=== PATIENT | female | born 1965 | race American Indian/Alaskan Native ===

== ENCOUNTER 2016-10-28 09:03 | Emergency (ER) | payer OTHER ==
[2016-10-28 09:24] VITALS: BP 147/96; PULSE 85; RESP 18; TEMP 98.4; O2SAT 99
--- NOTE | 2016-10-28 10:41 | ED PDOC ---
HPI: CCC, URI, Sore Throat Time Seen by Provider: 10/28/16 09:15 Chief Complaint (Nursing): Cough, Cold, Congestion Chief Complaint (Provider): Cough, Cold, Congestion History Per: Patient History/Exam Limitations: no limitations Onset/Duration Of Symptoms: Days Current Symptoms Are (Timing): Still Present Location Of Pain: None Sick Contacts (Context): Individual(s) At Work Associated Symptoms: Cough. denies: Fever, Sore Throat Ear Symptoms: Bilateral: None Severity: Mild Additional Complaint(s): Patient is a 51 year old female who presents to ED for cough, congestion and resulting chest pain from cough that began yesterday. 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 Patient notes taking Dayquil but discontinued after reading the warning label about having DM. No abd pain, nausea, vomit, numbness, tingles. Past Medical History Reviewed: Historical Data, Nursing Documentation, Vital Signs Vital Signs: Last Vital Signs Temp 98.4 F 10/28/16 09:22 Pulse 85 10/28/16 09:22 Resp 18 10/28/16 09:22 BP 147/96 H 10/28/16 09:22 Pulse Ox 99 10/28/16 11:13 - Medical History PMH: Diabetes, HTN - Surgical History Surgical History: No Surg Hx - Family History Family History: States: Unknown Family Hx - Living Arrangements Living Arrangements: With Family - Social History Alcohol: None Drugs: Denies - Home Medications Home Medications: Ambulatory Orders Medication Instructions Recorded Azithromycin [Zithromax Z-Freedom] 250 mg PO DAILY #5 tab 02/26/15 Guaifenesin [Mucinex] 1,200 mg PO BID #14 ter 02/26/15 amLODIPine [Norvasc] 5 mg PO DAILY 02/26/15 Fluticasone Nasal [Flonase] 1 actuation NS BID #1 bottle 05/07/15 Polymyxin/Trimethoprim Sulfate 1 drop OS Q6 #1 bottle 05/07/15 [Polytrim Ophth Soln] Amoxicillin/Clavulanate [Augmentin 1 tab PO BID #20 tab 09/23/15 875 MG-125 MG] Cetirizine HCl [Zyrtec] 10 mg PO DAILY #10 capsule 09/23/15 Fluticasone Propionate [Flonase] 1 actuation NS DAILY #1 bottle 09/23/15 Benzonatate [Tessalon Perles] 100 mg PO BID PRN 5 Days 10/28/16 Ibuprofen [Motrin] 600 mg PO TID 7 Days 10/28/16 - Allergies Allergies/Adverse Reactions: Allergies Allergy/AdvReac Type Severity Reaction Status Date / Time No Known Allergies Allergy Verified 02/26/15 16:11 Review of Systems Constitutional: Negative for: Fever, Chills, Weakness Eyes: Negative for: Vision Change ENT: Negative for: Ear Pain, Ear Discharge, Nose Congestion, Throat Pain Cardiovascular: Positive for: Chest Pain. Negative for: Palpitations Respiratory: Positive for: Cough. Negative for: Shortness of Breath Gastrointestinal: Negative for: Nausea, Vomiting, Abdominal Pain Musculoskeletal: Negative for: Neck Pain, Shoulder Pain, Arm Pain Skin: Negative for: Rash Neurological: Negative for: Weakness Physical Exam - Reviewed Nursing Documentation Reviewed: Yes Vital Signs Reviewed: Yes - Physical Exam Appears: Positive for: Non-toxic, No Acute Distress Head Exam: Positive for: ATRAUMATIC Skin: Positive for: Normal Color, Warm, DRY Eye Exam: Positive for: Normal appearance ENT: Positive for: Nasal Congestion. Negative for: Pharyngeal Erythema, Tonsillar Exudate Neck: Positive for: Normal, Painless ROM Cardiovascular/Chest: Positive for: Regular Rate, Rhythm. Negative for: Murmur Respiratory: Positive for: Normal Breath Sounds (active cough). Negative for: Wheezing, Respiratory Distress Back: Positive for: Normal Inspection. Negative for: L CVA Tenderness, R CVA Tenderness Extremity: Positive for: Normal ROM. Negative for: Tenderness, Pedal Edema Neurologic/Psych: Positive for: Alert, Oriented - ECG O2 Sat by Pulse Oximetry: 99 (RA) Pulse Ox Interpretation: Normal - Progress ED Course And Treament: 1039: Stable. AAOx3. Pain free. Tolerated po. Refused EKG and wants a work note and dc. Medical Decision Making Medical Decision Making: Time: 954 Initial impression: Viral illness Initial plan: -- EKG -- Motrin PO and Tessalon Perles Time: 1015 Patient is refusing EKG at this time and would like to be discharged with a note excuse for work. Patient instructed to take Motrin as needed for discomfort and follow up with PMD Scribe Attestation: Documented by Britt Ovalle acting as a scribe for Paulo Hartman MD. Scribe Attestation: All medical record entries made by the Scribe were at my direction and personally dictated by me. I have reviewed the chart and agree that the record accurately reflects my personal performance of the history, physical exam, medical decision making, and the department course for this patient. I have also personally directed, reviewed, and agree with the discharge instructions and disposition. Disposition - Clinical Impression Clinical Impression: URI (upper respiratory infection) - Patient ED Disposition Is Patient to be Admitted: No Counseled Patient/Family Regarding: Diagnosis, Need For Followup, Rx Given - Disposition Referrals: [facility] [Outside] - 10/30/16 Disposition: Routine/Home Disposition Time: 10:40 Condition: STABLE Additional Instructions: Return if not better in 3 days. Prescriptions: Benzonatate [Tessalon Perles] 100 mg PO BID PRN 5 Days PRN Reason: Cough Ibuprofen [Motrin] 600 mg PO TID 7 Days Instructions: Upper Respiratory Infection (ED) Forms: [employer] (Spanish), [facility] ED School/Work Excuse
== END 2016-10-28 11:04 | disposition home or self-care (01) ==
LOC: H.ER 09:03
DX: J06.9 Acute upper respiratory infection, unspecified (principal); E11.9 Type 2 diabetes mellitus without complications; I10 Essential (primary) hypertension

== ENCOUNTER 2017-03-23 07:21 | Emergency (ER) | payer OTHER ==
[2017-03-23 07:49] VITALS: BP 172/89; PULSE 85; RESP 17; TEMP 98.1; O2SAT 98
[2017-03-23] MEDS ORDERED: Promethazine/Cod 6.25mg-10mg/5ml Syr UD PO STA (08:08)
[2017-03-23] MEDS ORDERED: Promethazine/Cod 6.25mg-10mg/5ml Syr UD ONE (08:21)
--- NOTE | 2017-03-23 08:26 | ED PDOC ---
HPI: CCC, URI, Sore Throat Time Seen by Provider: 03/23/17 07:37 Chief Complaint (Nursing): Cough, Cold, Congestion Chief Complaint (Provider): Cough History Per: Patient History/Exam Limitations: no limitations Onset/Duration Of Symptoms: Days (2) Additional Complaint(s): Patient is a 51 y/o female with a past medical history of hypertension and diabetes presenting to the emergency department for a frequent, dry cough since last night with associated throat irritation. Denies taking medication to relieve symptoms. Also denies fever, chest pain, shortness of breath, or other complaints. PCP: none provided. Past Medical History Reviewed: Historical Data, Nursing Documentation, Vital Signs Vital Signs: Last Vital Signs Temp 98.1 F 03/23/17 07:42 Pulse 85 03/23/17 07:42 Resp 17 03/23/17 07:42 BP 172/89 H 03/23/17 07:42 Pulse Ox 98 03/23/17 09:45 - Medical History PMH: Diabetes, HTN - Family History Family History: States: Unknown Family Hx - Social History Current smoker - smoking cessation education provided: Yes Ex-Smoker (has not smoked in the last 12 months): No Alcohol: Social Drugs: Denies - Home Medications Home Medications: Ambulatory Orders Medication Instructions Recorded Azithromycin [Zithromax Z-Freedom] 250 mg PO DAILY #5 tab 02/26/15 Guaifenesin [Mucinex] 1,200 mg PO BID #14 ter 02/26/15 amLODIPine [Norvasc] 5 mg PO DAILY 02/26/15 Fluticasone Nasal [Flonase] 1 actuation NS BID #1 bottle 05/07/15 Polymyxin/Trimethoprim Sulfate 1 drop OS Q6 #1 bottle 05/07/15 [Polytrim Ophth Soln] Amoxicillin/Clavulanate [Augmentin 1 tab PO BID #20 tab 09/23/15 875 MG-125 MG] Cetirizine HCl [Zyrtec] 10 mg PO DAILY #10 capsule 09/23/15 Fluticasone Propionate [Flonase] 1 actuation NS DAILY #1 bottle 09/23/15 Benzonatate [Tessalon Perles] 100 mg PO BID PRN 5 Days sgl 03/23/17 Ibuprofen [Motrin] 600 mg PO TID 7 Days tab 03/23/17 - Allergies Allergies/Adverse Reactions: Allergies Allergy/AdvReac Type Severity Reaction Status Date / Time No Known Allergies Allergy Verified 02/26/15 16:11 Review of Systems ROS Statement: Except As Marked, All Systems Reviewed And Found Negative Constitutional: Negative for: Fever Cardiovascular: Negative for: Chest Pain Respiratory: Positive for: Cough (dry), Other (throat irritation). Negative for : Shortness of Breath, Sputum Physical Exam - Reviewed Nursing Documentation Reviewed: Yes Vital Signs Reviewed: Yes - Physical Exam Appears: Positive for: Well, Non-toxic, No Acute Distress Head Exam: Positive for: ATRAUMATIC, NORMAL INSPECTION, NORMOCEPHALIC Skin: Positive for: Normal Color, Warm, Dry Eye Exam: Positive for: Normal appearance, EOMI, PERRL ENT: Positive for: Normal ENT Inspection Neck: Positive for: Normal Cardiovascular/Chest: Positive for: Regular Rate, Rhythm. Negative for: Murmur Respiratory: Positive for: Normal Breath Sounds. Negative for: Accessory Muscle Use, Respiratory Distress Gastrointestinal/Abdominal: Positive for: Normal Exam, Soft. Negative for: Tenderness Back: Positive for: Normal Inspection Extremity: Positive for: Normal ROM. Negative for: Pedal Edema Neurologic/Psych: Positive for: Alert, Oriented (x3) - ECG O2 Sat by Pulse Oximetry: 98 (RA) Pulse Ox Interpretation: Normal Medical Decision Making Medical Decision Making: Time: 08:08 Initial Impression: Cough Differential diagnoses include but not limited to upper respiratory infection, bronchitis, and influenza. Initial plan: Promethazine/Codeine 5 mL PO Influenza test Blood sugar evaluation Reevaluation Scribe Attestation: Documented by Jenni Lewis, acting as a scribe for Amber Chicas MD. Provider Scribe Attestation: All medical record entries made by the Scribe were at my direction and personally dictated by me. I have reviewed the chart and agree that the record accurately reflects my personal performance of the history, physical exam, medical decision making, and the department course for this patient. I have also personally directed, reviewed, and agree with the discharge instructions and disposition. Disposition - Clinical Impression Clinical Impression: Cough, URI (upper respiratory infection) - Patient ED Disposition Is Patient to be Admitted: No Counseled Patient/Family Regarding: Studies Performed, Diagnosis, Need For Followup - Disposition Referrals: [facility] [Outside] Disposition: Routine/Home Disposition Time: 10:30 Condition: GOOD Additional Instructions: Follow up with your PCP in 2-3 days. Prescriptions: Benzonatate [Tessalon Perles] 100 mg PO BID PRN 5 Days sgl PRN Reason: Cough Ibuprofen [Motrin] 600 mg PO TID 7 Days tab Instructions: Upper Respiratory Infection (ED) Forms: [facility] ED School/Work Excuse
== END 2017-03-23 10:58 | disposition home or self-care (01) ==
LOC: H.ER 07:21
DX: J06.9 Acute upper respiratory infection, unspecified (principal); E11.9 Type 2 diabetes mellitus without complications; I10 Essential (primary) hypertension

== ENCOUNTER 2017-07-17 12:57 | Emergency (ER) | payer OTHER ==
[2017-07-17 13:04] VITALS: RESP 16
[2017-07-17] MEDS ORDERED: Albuterol-Ipratrop 3 mg / 0.5 (3 ml) UD INH STA ×3 (14:06→14:07)
--- NOTE | 2017-07-17 14:37 | RAD ---
HISTORY: cough, dyspnea COMPARISON: Chest radiograph dated 03/06/2015. TECHNIQUE: Chest PA and lateral FINDINGS: LUNGS: No active pulmonary disease. PLEURA: No significant pleural effusion identified. No pneumothorax apparent. CARDIOVASCULAR: Normal. OSSEOUS STRUCTURES: Unchanged. VISUALIZED UPPER ABDOMEN: Normal. OTHER FINDINGS: None. IMPRESSION: No active disease.
--- NOTE | 2017-07-17 15:00 | ED PDOC ---
HPI: General Adult Time Seen by Provider: 07/17/17 13:56 Chief Complaint (Nursing): Flu-like Symptoms Chief Complaint (Provider): Cough History Per: Patient History/Exam Limitations: no limitations Onset/Duration Of Symptoms: Days (7 days ago) Current Symptoms Are (Timing): Still Present Additional Complaint(s): 52 yo female with a history of diabetes and hypertension, presents to the ED complaining of cough, onset of 1 week ago. She denies any fever, chills, abdominal pain, back pain but reports of cough and shortness of breath. Of note , she is an occasional smoker and has not received a flu shot. pmd: Dr. Hamilton ([place]) Past Medical History Reviewed: Historical Data, Nursing Documentation, Vital Signs Vital Signs: Last Vital Signs Temp 98.4 F 07/17/17 13:00 Pulse 98 H 07/17/17 13:00 Resp 16 07/17/17 13:00 BP 154/90 H 07/17/17 13:00 Pulse Ox 100 07/17/17 15:24 - Medical History PMH: Diabetes, HTN - Surgical History Surgical History: No Surg Hx - Family History Family History: States: Unknown Family Hx - Social History Current smoker - smoking cessation education provided: Yes (occasional) Alcohol: None Drugs: Denies - Home Medications Home Medications: Ambulatory Orders Medication Instructions Recorded Azithromycin [Zithromax Z-Freedom] 250 mg PO DAILY #5 tab 02/26/15 Guaifenesin [Mucinex] 1,200 mg PO BID #14 ter 02/26/15 amLODIPine [Norvasc] 5 mg PO DAILY 02/26/15 Fluticasone Nasal [Flonase] 1 actuation NS BID #1 bottle 05/07/15 Polymyxin/Trimethoprim Sulfate 1 drop OS Q6 #1 bottle 05/07/15 [Polytrim Ophth Soln] Amoxicillin/Clavulanate [Augmentin 1 tab PO BID #20 tab 09/23/15 875 MG-125 MG] Cetirizine HCl [Zyrtec] 10 mg PO DAILY #10 capsule 09/23/15 Fluticasone Propionate [Flonase] 1 actuation NS DAILY #1 bottle 09/23/15 Benzonatate [Tessalon Perles] 100 mg PO BID PRN 5 Days sgl 03/23/17 Ibuprofen [Motrin] 600 mg PO TID 7 Days tab 03/23/17 - Allergies Allergies/Adverse Reactions: Allergies Allergy/AdvReac Type Severity Reaction Status Date / Time No Known Allergies Allergy Verified 02/26/15 16:11 Review of Systems ROS Statement: Except As Marked, All Systems Reviewed And Found Negative Constitutional: Negative for: Fever, Chills Respiratory: Positive for: Cough, Shortness of Breath Gastrointestinal: Negative for: Abdominal Pain Musculoskeletal: Negative for: Back Pain Physical Exam - Reviewed Nursing Documentation Reviewed: Yes Vital Signs Reviewed: Yes - Physical Exam Appears: Positive for: Well, Non-toxic, No Acute Distress Head Exam: Positive for: ATRAUMATIC, NORMAL INSPECTION, NORMOCEPHALIC Skin: Positive for: Normal Color, Warm, DRY Eye Exam: Positive for: EOMI, Normal appearance, PERRL ENT: Positive for: Normal ENT Inspection Neck: Positive for: Normal, Painless ROM Cardiovascular/Chest: Positive for: Regular Rate, Rhythm. Negative for: Murmur Respiratory: Positive for: Wheezing (labored, scattered wheezing) Gastrointestinal/Abdominal: Positive for: Normal Exam, Soft. Negative for: Tenderness Back: Positive for: Normal Inspection Extremity: Positive for: Normal ROM. Negative for: Pedal Edema, Deformity Neurologic/Psych: Positive for: Alert, Oriented. Negative for: Motor/Sensory Deficits - ECG O2 Sat by Pulse Oximetry: 100 (RA) Pulse Ox Interpretation: Normal Medical Decision Making Medical Decision Making: Time: --14:06 Impression: --asthma vs. COPD vs. bronchial spasms Plan: --Albuterol 3ml INH x3 --Peak flow pre/post x3 Reassess --15:00 Patient to be signed out to Dr. Berger pending ED workup and final disposition. Scribe Attestation: Documented by Leo Jones acting as a scribe for Gisselle Negrete MD. Provider Attestation: All medical record entries made by the Scribe were at my direction and personally dictated by me. I have reviewed the chart and agree that the record accurately reflects my personal performance of the history, physical exam, medical decision making, and the department course for this patient. I have also personally directed, reviewed, and agree with the discharge instructions and disposition Disposition - Clinical Impression Clinical Impression: Asthma - Patient ED Disposition Is Patient to be Admitted: Transfer of Care Discussed With : Jessi Berger Doctor Will See Patient In The: ED - Disposition Disposition: Transfer of Care Disposition Time: 15:00 Condition: FAIR Forms: [employer] (Eritrean) Patient Signed Over To: Jessi Berger
--- NOTE | 2017-07-17 15:24 | ED PDOC ---
- ECG O2 Sat by Pulse Oximetry: 100 (RA) Pulse Ox Interpretation: Normal - Radiology X-Ray: Interpreted by Me X-Ray Interpretation: No Acute Disease - Progress Re-evaluation Time: 17:30 Condition: Improved Medical Decision Making Medical Decision Making: Time: --15:00 Reassess --Patient signed out to the provider by Dr. Negrete pending ED workup an final disposition. --14:36 FINDINGS: Chest X-ray LUNGS: No active pulmonary disease. PLEURA: No significant pleural effusion identified. No pneumothorax apparent. CARDIOVASCULAR: Normal. OSSEOUS STRUCTURES: Unchanged. VISUALIZED UPPER ABDOMEN: Normal. OTHER FINDINGS: None. IMPRESSION: No active disease. Scribe Attestation: Documented by Leo Jones acting as a scribe for Jessi Berger MD. Provider Attestation: All medical record entries made by the Scribe were at my direction and personally dictated by me. I have reviewed the chart and agree that the record accurately reflects my personal performance of the history, physical exam, medical decision making, and the department course for this patient. I have also personally directed, reviewed, and agree with the discharge instructions and disposition Disposition Counseled Patient/Family Regarding: Studies Performed, Diagnosis, Need For Followup, Rx Given - Clinical Impression Clinical Impression: Reactive airway disease, Bronchitis - POA Present On Arrival: None - Disposition Disposition: Routine/Home Disposition Time: 18:00 Condition: IMPROVED Additional Instructions: FOLLOW UP IN 2-3 DAYS WITH YOUR PRIMARY CARE DOCTOR TO SEE HOW YOU ARE DOING Prescriptions: Albuterol HFA [Ventolin HFA 90 mcg/actuation (8 g)] 2 puff IH Q4H PRN #1 inh PRN Reason: chest tightness Azithromycin [Zithromax] 250 mg PO DAILY #6 dose Ibuprofen [Motrin Tab] 600 mg PO Q8 PRN #30 tab PRN Reason: Pain, Moderate (4-7) Promethazine DM [Phenergan DM Syrup] 10 ml PO Q6 PRN #120 ml PRN Reason: Cough Instructions: Acute Bronchitis (ED) Forms: [facility] ED School/Work Excuse
[2017-07-17] MEDS ORDERED: Albuterol-Ipratrop 3 mg / 0.5 (3 ml) UD ONE (15:36)
[2017-07-17 18:18] VITALS: BP 135/80; PULSE 75; TEMP 98.2; O2SAT 99
== END 2017-07-17 18:18 | disposition home or self-care (01) ==
LOC: H.ER 12:57
DX: J40 Bronchitis, not specified as acute or chronic (principal); E11.9 Type 2 diabetes mellitus without complications; I10 Essential (primary) hypertension; J45.909 Unspecified asthma, uncomplicated

== ENCOUNTER 2017-08-06 07:21 | Emergency (ER) | payer OTHER ==
[2017-08-06 07:41] VITALS: BP 161/91; PULSE 82; RESP 18; TEMP 98.8; O2SAT 99
--- NOTE | 2017-08-06 09:24 | ED PDOC ---
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 Past Medical History Reviewed: Historical Data, Nursing Documentation, Vital Signs Vital Signs: Last Vital Signs Temp 98.8 F 08/06/17 07:38 Pulse 82 08/06/17 07:38 Resp 18 08/06/17 07:38 BP 161/91 H 08/06/17 07:38 Pulse Ox 99 08/06/17 07:38 - Medical History PMH: Diabetes, HTN - Family History Family History: States: Unknown Family Hx - Living Arrangements Living Arrangements: With Family - Social History Current smoker - smoking cessation education provided: No - Home Medications Home Medications: Ambulatory Orders Medication Instructions Recorded amLODIPine [Norvasc] 5 mg PO DAILY 02/26/15 Cetirizine HCl [Zyrtec] 10 mg PO DAILY #10 capsule 09/23/15 Fluticasone Propionate [Flonase] 1 actuation NS DAILY #1 bottle 09/23/15 Ibuprofen [Motrin] 600 mg PO TID 7 Days tab 03/23/17 Albuterol HFA [Ventolin HFA 90 2 puff IH Q4H PRN #1 inh 07/17/17 mcg/actuation (8 g)] Acetaminophen with Codeine 2 each PO QID PRN #30 tablet 08/06/17 [Tylenol with Codeine #3 Tablet] Amoxicillin/Clavulanate [Augmentin 1 tab PO BID #20 tab 08/06/17 875 MG-125 MG] Insulin Aspart [Novolog Flexpen] 5 units SQ DAILY 08/06/17 - Allergies Allergies/Adverse Reactions: Allergies Allergy/AdvReac Type Severity Reaction Status Date / Time No Known Allergies Allergy Verified 02/26/15 16:11 Review of Systems ROS Statement: Except As Marked, All Systems Reviewed And Found Negative Constitutional: Negative for: Fever, Chills, Weakness, Malaise ENT: Positive for: Nose Congestion Cardiovascular: Negative for: Chest Pain, Palpitations Respiratory: Positive for: Cough, Sputum (yellow). Negative for: Shortness of Breath Gastrointestinal: Negative for: Nausea, Vomiting, Abdominal Pain Musculoskeletal: Negative for: Neck Pain Neurological: Negative for: Weakness, Numbness Physical Exam - Reviewed Nursing Documentation Reviewed: Yes Vital Signs Reviewed: Yes - Physical Exam Appears: Positive for: Uncomfortable Head Exam: Positive for: ATRAUMATIC, NORMAL INSPECTION, NORMOCEPHALIC Eye Exam: Positive for: Normal appearance, EOMI, PERRL ENT: Positive for: Pharynx Is (mmm), Nasal Congestion (clear). Negative for: Pharyngeal Erythema, Tonsillar Exudate, Tonsillar Swelling Neck: Positive for: Normal, Painless ROM, Supple. Negative for: Decreased ROM, Limited ROM, Trachea Midline, Pain On Movement Of Neck Cardiovascular/Chest: Positive for: Regular Rate, Rhythm, Chest Non Tender. Negative for: Edema, Gallop, Murmur, Bradycardia, Tachycardia Respiratory: Positive for: Normal Breath Sounds. Negative for: Decreased Breath Sounds, Accessory Muscle Use, Crackles, Rales, Rhonchi, Stridor, Wheezing , Respiratory Distress Gastrointestinal/Abdominal: Positive for: Normal Exam, Bowel Sounds, Soft. Negative for: Tenderness Back: Positive for: Normal Inspection. Negative for: L CVA Tenderness, R CVA Tenderness Extremity: Positive for: Normal ROM. Negative for: Tenderness, Pedal Edema, Calf Tenderness, Deformity, Swelling Neurologic/Psych: Positive for: Alert, lamination spinner II-XII, Oriented. Negative for: Motor/Sensory Deficits Front/Back of Body: 1 - mild facial swelling on right mild tenderness - Laboratory Results Result Diagrams: 08/06/17 09:00 08/06/17 09:00 - ECG O2 Sat by Pulse Oximetry: 99 Pulse Ox Interpretation: Normal - Progress ED Course And Treament: PROCEDURE: CT MAXILLOFACIAL BONES WITHOUT CONTRAST HISTORY: right sided facial swelling poss parotitis COMPARISON: None TECHNIQUE: Contiguous axial CT images of the maxillofacial bones were obtained. Coronal and sagittal reformats were generated. Radiation dose: Total exam DLP = 745.23 mGy-cm. This CT exam was performed using one or more of the following dose reduction techniques: Automated exposure control, adjustment of the mA and/or kV according to patient size, and/or use of iterative reconstruction technique. FINDINGS: NASAL BONES: Unremarkable. ORBITS: Bony ordered unremarkable. The globes are rounded and symmetric. There is no intraorbital hemorrhage or mass. PARANASAL SINUSES/ MASTOIDS: Chronic ethmoid and bilateral maxillary sinusitis. MAXILLA: Apical lucency about the right maxillary 1st premolar and about the left maxillary 1st and 2nd premolars and 1st molar, consistent with periodontal disease. No evidence of facial abscess. Please note that there is hang cortical breakthrough at the level of the 1st molar. No subcutaneous soft tissue swelling/inflammation. MANDIBLE/ TEMPOROMANDIBULAR JOINTS: Apical lucency noted about left posterior molar. Periodontal consultation advised. . SKULL BASE: Unremarkable. TEMPORAL BONES: Middle ears and mastoid grossly unremarkable. OTHER FINDINGS: The parotid glands are symmetric and normal in appearance. There is no parotid mass. The submandibular glands are symmetric and normal in appearance. No significantly enlarged cervical lymph nodes are identified. Shotty level 1 and 2 nodes are evident. IMPRESSION: No evidence of parotitis or cellulitis. No evidence of facial abscess. 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 Chronic ethmoid and bilateral maxillary sinusitis. Re-evaluation Time: 11:54 Condition: Improved Medical Decision Making Medical Decision Making: advise augmentin and close f/u with pmd. pt does not appear to have any signs of parotitis. a sinusitis is presnt as well as peridonatal diseas and advise tylenol with codein and abx. all of pt's questions were answered and pt agree's with plan. Disposition - Clinical Impression Clinical Impression: Sinusitis, Periodontal disease - Patient ED Disposition Is Patient to be Admitted: No Counseled Patient/Family Regarding: Studies Performed, Diagnosis, Need For Followup, Rx Given - Disposition Referrals: [facility] [place] [Outside] (2 to 3 days) Disposition: Routine/Home Disposition Time: 11:00 Condition: GOOD Prescriptions: Acetaminophen with Codeine [Tylenol with Codeine #3 Tablet] 2 each PO QID PRN # 30 tablet PRN Reason: Pain, Moderate (4-7) Amoxicillin/Clavulanate [Augmentin 875 MG-125 MG] 1 tab PO BID #20 tab Instructions: Sinusitis in Adults, Periodontal Disease Treatment (DC) Forms: [employer] (Armenian), [facility] ED School/Work Excuse
[2017-08-06] MEDS ORDERED: Oxycodone/Acetaminophen 5/325 mg Tab PO STA (09:55)
--- NOTE | 2017-08-06 10:06 | CT ---
PROCEDURE: CT HEAD WITHOUT CONTRAST. HISTORY: right sided monge COMPARISON: None available. TECHNIQUE: Axial computed tomography images were obtained through the head/brain without intravenous contrast. Radiation dose: Total exam DLP = 849.63 mGy-cm. This CT exam was performed using one or more of the following dose reduction techniques: Automated exposure control, adjustment of the mA and/or kV according to patient size, and/or use of iterative reconstruction technique. FINDINGS: HEMORRHAGE: No intracranial hemorrhage. BRAIN: No mass effect or edema. No atrophy or chronic microvascular ischemic changes. Extensive calcification along the anterior falx cerebrum the, likely dystrophic. Atypical appearance for meningioma. No evidence of acute infarct. VENTRICLES: Unremarkable. No hydrocephalus. CALVARIUM: Unremarkable. PARANASAL SINUSES: Chronic ethmoid and bilateral maxillary sinusitis. MASTOID AIR CELLS: Unremarkable as visualized. No inflammatory changes. OTHER FINDINGS: Soft tissue density in right external auditory canal most likely represents cerumen. Please correlate with direct visualization. IMPRESSION: No intracranial mass, hemorrhage or evidence of acute infarct. Chronic ethmoid and bilateral maxillary sinusitis.
[2017-08-06 10:10] LABS: BASO % 0.6 % (0.0-2.0); EOS # 0.2 K/uL (0.0-0.7); EOS % 2.8 % (0.0-4.0); HEMOGLOBIN 13.9 g/dL (12.0-16.0); LYMPH # 2.7 K/uL (1.0-4.3); LYMPH % 37.8 % (20.0-40.0); MEAN CELL VOLUME 87.2 fl (81.0-99.0); MEAN CORPUSCULAR HEMOGLOBIN 29.8 pg (27.0-31.0); MEAN CORPUSCULAR HGB CONC 34.3 g/dL (33.0-37.0); MEAN PLATELET VOLUME 10.1 fl (7.2-11.7); MONO # 0.5 K/uL (0.0-0.8); MONO % 6.6 % (0.0-10.0); NEUT # 3.7 K/uL (1.8-7.0); NEUT % 52.2 % (50.0-75.0); NRBC % 0.1 % (0.0-0.0); RBC 4.64 Mil/uL (3.80-5.20); RED CELL DISTRIBUTION WIDTH 13.5 % (11.5-14.5); WHITE BLOOD COUNT 7.1 K/uL (4.8-10.8)
[2017-08-06 10:24] LABS: ALB/GLOB RATIO 1.1 (1.0-2.1); ALBUMIN 4.1 g/dL (3.5-5.0); ALT/SGPT 32 U/L (9-52); AMYLASE 88 U/L (30-110); AST/SGOT 21 U/L (14-36); BLOOD UREA NITROGEN 15 mg/dl (7-17); CALCIUM 9.4 mg/dL (8.4-10.2); GFR AFRICAN-AMERICAN > 60; GFR NON-AFRICAN AMERICAN > 60; LIPASE 48 U/L (23-300)
--- NOTE | 2017-08-06 10:29 | RAD ---
HISTORY: cough COMPARISON: Chest radiographs 07/17/2017. TECHNIQUE: Chest PA and lateral FINDINGS: LUNGS: No active pulmonary disease. PLEURA: No significant pleural effusion identified. No pneumothorax apparent. CARDIOVASCULAR: Normal. OSSEOUS STRUCTURES: No significant abnormalities. VISUALIZED UPPER ABDOMEN: Normal. OTHER FINDINGS: None. IMPRESSION: No interval acute cardiopulmonary disease appreciated.
--- NOTE | 2017-08-06 11:36 | CT ---
PROCEDURE: CT MAXILLOFACIAL BONES WITHOUT CONTRAST HISTORY: right sided facial swelling poss parotitis COMPARISON: None TECHNIQUE: Contiguous axial CT images of the maxillofacial bones were obtained. Coronal and sagittal reformats were generated. Radiation dose: Total exam DLP = 745.23 mGy-cm. This CT exam was performed using one or more of the following dose reduction techniques: Automated exposure control, adjustment of the mA and/or kV according to patient size, and/or use of iterative reconstruction technique. FINDINGS: NASAL BONES: Unremarkable. ORBITS: Bony ordered unremarkable. The globes are rounded and symmetric. There is no intraorbital hemorrhage or mass. PARANASAL SINUSES/ MASTOIDS: Chronic ethmoid and bilateral maxillary sinusitis. MAXILLA: Apical lucency about the right maxillary 1st premolar and about the left maxillary 1st and 2nd premolars and 1st molar, consistent with periodontal disease. No evidence of facial abscess. Please note that there is hang cortical breakthrough at the level of the 1st molar. No subcutaneous soft tissue swelling/inflammation. MANDIBLE/ TEMPOROMANDIBULAR JOINTS: Apical lucency noted about left posterior molar. Periodontal consultation advised. . SKULL BASE: Unremarkable. TEMPORAL BONES: Middle ears and mastoid grossly unremarkable. OTHER FINDINGS: The parotid glands are symmetric and normal in appearance. There is no parotid mass. The submandibular glands are symmetric and normal in appearance. No significantly enlarged cervical lymph nodes are identified. Shotty level 1 and 2 nodes are evident. IMPRESSION: No evidence of parotitis or cellulitis. No evidence of facial abscess. 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 Chronic ethmoid and bilateral maxillary sinusitis.
== END 2017-08-06 12:36 | disposition home or self-care (01) ==
LOC: H.ER 07:21
DX: K05.6 Periodontal disease, unspecified (principal); J32.9 Chronic sinusitis, unspecified; E11.9 Type 2 diabetes mellitus without complications; I10 Essential (primary) hypertension; J32.0 Chronic maxillary sinusitis; Z79.4 Long term (current) use of insulin

== ENCOUNTER 2018-03-29 15:56 | Emergency (ER) | payer OTHER ==
[2018-03-29] MEDS ORDERED: Sodium Chloride 0.9% 1,000 ML IV STA ×2 (16:25→18:03)
[2018-03-29 16:50] LABS: BASO % 0.8 % (0.0-2.0); EOS # 0.2 K/uL (0.0-0.7); EOS % 2.4 % (0.0-4.0); HEMOGLOBIN 14.5 g/dL (12.0-16.0); LYMPH % 46.9 % (20.0-40.0); MEAN CELL VOLUME 89.5 fl (81.0-99.0); MEAN CORPUSCULAR HEMOGLOBIN 30.4 pg (27.0-31.0); MEAN CORPUSCULAR HGB CONC 33.9 g/dL (33.0-37.0); MEAN PLATELET VOLUME 9.4 fl (7.2-11.7); MONO # 0.4 K/uL (0.0-0.8); MONO % 5.5 % (0.0-10.0); NEUT # 2.8 K/uL (1.8-7.0); NEUT % 44.4 % (50.0-75.0); RBC 4.77 Mil/uL (3.80-5.20); RED CELL DISTRIBUTION WIDTH 13.7 % (11.5-14.5); WHITE BLOOD COUNT 6.4 K/uL (4.8-10.8)
--- NOTE | 2018-03-29 16:55 | ED PDOC ---
Hyperglycemia/Hypoglycemia Time Seen by Provider: 03/29/18 16:21 Chief Complaint (Nursing): High Blood Sugar Chief Complaint (Provider): High Blood Sugar Onset/Duration Of Symptoms: Days (x today) : The patient does not have any of the infectious symptoms listed except for those marked. Additional Complaint(s): Elizabeth Brown is a 52 year old female with a past medical history of HTN and diabetes, who is presents to the emergency department accompanied by her co- workers for acute anxiety exacerbation. Patient states she has no history of psychiatry disorders. She reports that she has recently started chantix to stop smoking and recently had a dental procedure and was put on antibiotics and pain medications. Patient was at work when she became anxious, diaphoretic, and was crying. Seen on stretcher, patient can be easily redirected but was tachypnic and throwing back at stretcher. Her coworkers have stated that this is not normal behavior. Patient denies shortness of breath, fever, nausea, or vomiting. PMD: No Provider Past Medical History Reviewed: Historical Data, Nursing Documentation, Vital Signs Vital Signs: Last Vital Signs Temp 97.8 F 03/29/18 16:03 Pulse 88 03/29/18 16:03 Resp 20 03/29/18 16:03 BP 188/120 H 03/29/18 16:03 Pulse Ox 99 03/29/18 16:03 - Medical History PMH: Diabetes, HTN - Surgical History Surgical History: No Surg Hx - Family History Family History: States: Unknown Family Hx - Home Medications Home Medications: Ambulatory Orders Medication Instructions Recorded amLODIPine [Norvasc] 5 mg PO DAILY 02/26/15 Cetirizine HCl [Zyrtec] 10 mg PO DAILY #10 capsule 09/23/15 Fluticasone Propionate [Flonase] 1 actuation NS DAILY #1 bottle 09/23/15 Ibuprofen [Motrin] 600 mg PO TID 7 Days tab 03/23/17 Albuterol HFA [Ventolin HFA 90 2 puff IH Q4H PRN #1 inh 07/17/17 mcg/actuation (8 g)] Acetaminophen with Codeine 2 each PO QID PRN #30 tablet 08/06/17 [Tylenol with Codeine #3 Tablet] Amoxicillin/Clavulanate [Augmentin 1 tab PO BID #20 tab 08/06/17 875 MG-125 MG] Insulin Aspart [Novolog Flexpen] 5 units SQ DAILY 08/06/17 Lorazepam [Ativan] 0.5 mg PO DAILY PRN #4 tab 03/29/18 - Allergies Allergies/Adverse Reactions: Allergies Allergy/AdvReac Type Severity Reaction Status Date / Time No Known Allergies Allergy Verified 02/26/15 16:11 Review of Systems ROS Statement: Except As Marked, All Systems Reviewed And Found Negative Constitutional: Negative for: Fever Respiratory: Negative for: Shortness of Breath Gastrointestinal: Negative for: Nausea, Vomiting Skin: Positive for: Other (diaphoretic ) Psych: Positive for: Anxiety Physical Exam - Reviewed Nursing Documentation Reviewed: Yes Vital Signs Reviewed: Yes - Physical Exam Appears: Positive for: Non-toxic, In Acute Distress (tearful) Head Exam: Positive for: ATRAUMATIC, NORMOCEPHALIC Skin: Positive for: Diaphoresis Eye Exam: Positive for: Normal appearance, EOMI, PERRL ENT: Positive for: Normal ENT Inspection Neck: Positive for: Normal, Painless ROM, Supple Cardiovascular/Chest: Positive for: Regular Rate, Rhythm. Negative for: Murmur Respiratory: Positive for: Normal Breath Sounds. Negative for: Respiratory Distress Gastrointestinal/Abdominal: Positive for: Normal Exam, Soft. Negative for: Tenderness Back: Positive for: Normal Inspection. Negative for: L CVA Tenderness, R CVA Tenderness, Vertebral Tenderness Extremity: Positive for: Normal ROM. Negative for: Pedal Edema, Calf Tenderness, Deformity Neurologic/Psych: Positive for: Alert, Oriented (x3) - Laboratory Results Result Diagrams: 03/29/18 16:39 03/29/18 16:39 - ECG O2 Sat by Pulse Oximetry: 99 (RA) Pulse Ox Interpretation: Normal Medical Decision Making Medical Decision Making: Initial Time: 16:25 A/P: Work up for organic cause of anxiety with labs, IV fluids, and will be given Ativan to calm down. Provider will reassess patient. Plan: --EKG --BMP --Troponin I --CBC with differential --Ativan 2 mg IVP --Sodium Chloride 1,000 ml Scribe Attestation: Documented by Francisco Collazo, acting as a scribe for Betsy Guerrero MD. Provider Scribe Attestation: All medical record entries made by the Scribe were at my direction and personally dictated by me. I have reviewed the chart and agree that the record accurately reflects my personal performance of the history, physical exam, medical decision making, and the department course for this patient. I have also personally directed, reviewed, and agree with the discharge instructions and disposition. Pt with improved symptoms with Ativan. Vitals and labs WNL. Fingerstick improved. Discussed the possibility of drug interactions causing the anxiety vs panic attack. PT will follow up with PMD to discuss medications and potential for manager terminal anxiety treatment. Return parameters discussed. Disposition - Clinical Impression Clinical Impression: Panic attack - Disposition Disposition: Routine/Home Disposition Time: 18:38 Condition: IMPROVED Additional Instructions: Follow up with primary medical doctor to discuss panic attacks and anxiety. Also discuss all medications with your primary doctor as medication interactions may be causing the symptoms. Return to the emergency department if symptoms worsen or if new symptoms develop. Prescriptions: Lorazepam [Ativan] 0.5 mg PO DAILY PRN #4 tab PRN Reason: Anxiety Instructions: Anxiety, Adult (DC), Panic Disorder (DC) Forms: [employer] (Estonian), [facility] ED School/Work Excuse Print Language: GREENLANDIC
[2018-03-29 17:00] LABS: BLOOD UREA NITROGEN 15 mg/dl (7-17); GFR NON-AFRICAN AMERICAN > 60
[2018-03-29 18:34] VITALS: BP 132/74; PULSE 89; RESP 17; TEMP 98.6
[2018-03-29 18:38] VITALS: O2SAT 99
--- NOTE | 2018-03-30 06:55 | CARD ---
APPROVED REPORT Date of service: 03/29/2018 EKG Measurement Heart [id number] <Conclusion> Normal sinus rhythm Normal ECG
== END 2018-03-29 19:07 | disposition home or self-care (01) ==
LOC: H.ER 15:56
DX: F41.0 Panic disorder [episodic paroxysmal anxiety] (principal); E11.9 Type 2 diabetes mellitus without complications; I10 Essential (primary) hypertension; Z79.4 Long term (current) use of insulin
CPT/HCPCS: 80048; 84484; 85025; 93005; 96374; 99284; J2060; J7030

== ENCOUNTER 2018-06-29 14:37 | Emergency (ER) | payer OTHER ==
[2018-06-29 14:44] VITALS: RESP 18; TEMP 98
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
--- NOTE | 2018-06-29 16:17 | RAD ---
PROCEDURE: Right Hip Radiographs. HISTORY: pain COMPARISON: None. FINDINGS: BONES: Normal. No fracture. JOINTS: Normal. SOFT TISSUES: Normal. OTHER FINDINGS: None. IMPRESSION: Normal radiographs of right hip.
--- NOTE | 2018-06-29 16:18 | RAD ---
Date of service: 06/29/2018 PROCEDURE: Right Femur Radiographs. HISTORY: pain COMPARISON: None. TECHNIQUE: AP and Lateral Radiographs of the right femur. FINDINGS: FEMUR: Normal. No fracture. SOFT TISSUES: Normal. OTHER FINDINGS: None. IMPRESSION: Unremarkable radiographs of the right femur.
[2018-06-29 16:36] VITALS: BP 145/86; PULSE 80; O2SAT 100
== END 2018-06-29 16:00 | disposition home or self-care (01) ==
LOC: H.ER 14:37
DX: S79.911A Unspecified injury of right hip, initial encounter (principal); V03.90XA Pedestrian on foot injured in collision with car, pick-up truck or van, unspecified whether traffic or nontraffic accident, initial encounter
CPT/HCPCS: 73503; 73552; 96372; 99284; J1885